=== PATIENT | female | born 1995 | race Caucasian/White ===

== ENCOUNTER 2017-10-08 02:34 | Emergency (ER) | payer SELFPAY ==
[~2017-10-08] VITALS: Ht 167.6 cm; Wt 55.7 kg
[2017-10-08 04:51] LABS: HEMATOCRIT 41.3 % (36.0-46.0); HEMOGLOBIN 14.2 G/DL (11.9-15.5); MCH 31.1 PG (29.0-34.0); MCHC 34.4 G/DL (30.0-36.0); MCV 90.6 FL (83-99); PLATELET COUNT 131 K/uL (156-360); RBC DIS.WIDTH-CV 12.5 % (11.8-14.6); RED BLOOD COUNT 4.56 M/uL (3.80-5.20); WHITE BLOOD COUNT 7.2 K/uL (4.1-10.2)
[2017-10-08 05:05] LABS: ALBUMIN 4.8 g/dL (3.2-4.8); CHLORIDE 109 mEq/L (99-109)
[2017-10-08 05:06] LABS: SODIUM 140 mEq/L (136-147)
[2017-10-08 05:08] LABS: GLUCOSE 135 mg/dL (70-99); TOTAL PROTEIN 8.3 g/dL (6.4-8.3)
[2017-10-08 05:10] LABS: TOTAL BILIRUBIN 0.7 mg/dL (0.0-1.0)
[2017-10-08 05:11] LABS: ALKALINE PHOSPHATASE 51 IU/L (3-129); CREATININE 0.8 mg/dL (0.6-1.3); GFR ESTIMATE (CALCULATED) > 59 mL/min/
[2017-10-08 05:12] LABS: UREA NITROGEN (BUN) 8 mg/dL (9-23)
[2017-10-08 05:13] LABS: AST (GOT) 16 IU/L (2-34)
[2017-10-08 05:14] LABS: ALT (GPT) 12 IU/L (3-49)
[2017-10-08 05:20] LABS: QUANTITATIVE HCG < 4.0 MIU/ML
[2017-10-08 06:17] LABS: APPEARANCE SL.HAZY ((CLEAR)); BILIRUBIN NEGATIVE; BLOOD LARGE; COLOR YELLOW ((YELLOW)); GLUCOSE (STRIP) NEGATIVE; KETONES 20; LEUKOCYTES NEGATIVE; NITRITE NEGATIVE; PROTEIN (STRIP) 30; SPECIFIC GRAVITY 1.025 (1.000-1.030); UROBILINOGEN 0.2 MG/DL (0.2-1.0)
[2017-10-08 06:21] LABS: BACTERIA 1+ /HPF; EPITHELIAL CELLS RARE /HPF; MUCUS 4+ /LPF; RED BLOOD CELLS 0-5 /HPF (0-5); UCUL ADDED? NO; WHITE BLOOD CELLS 0-5 /HPF (0-5)
[2017-10-08] MEDS ORDERED: REGLAN10 MG PO (06:29)
[2017-10-08] MEDS ORDERED: ZOFRAN ODT4 MG PO (06:29)
[2017-10-08] MEDS ORDERED: COMPAZINE25 M1 PR (06:29)
[2017-10-08 06:48] VITALS: BP 113/75
== END 2017-10-08 06:49 | disposition home or self-care (01) ==
LOC: EME 02:34
DX: K52.9 Noninfective gastroenteritis and colitis, unspecified (principal); Z79.3 Long term (current) use of hormonal contraceptives
CPT/HCPCS: 80053; 81003; 84702; 85027; 99281; 99284; J2405; J2765; J7040

== ENCOUNTER 2017-10-11 12:09 | Emergency (ER) | payer SELFPAY ==
[~2017-10-11] VITALS: Ht 157.5 cm; Wt 56.1 kg
[~2017-10-11 12:09] MED LIST: COMPAZINE25 M1 PR; REGLAN10 MG PO; ZOFRAN ODT4 MG PO
[2017-10-11 13:09] LABS: HEMATOCRIT 40.3 % (36.0-46.0); HEMOGLOBIN 13.7 G/DL (11.9-15.5); MCH 30.5 PG (29.0-34.0); MCV 89.8 FL (83-99); PLATELET COUNT 125 K/uL (156-360); RBC DIS.WIDTH-CV 12.4 % (11.8-14.6); RBC DIS.WIDTH-SD 40.5 % (39-53); RED BLOOD COUNT 4.49 M/uL (3.80-5.20); WHITE BLOOD COUNT 4.8 K/uL (4.1-10.2)
[2017-10-11 13:17] LABS: APPEARANCE CLEAR ((CLEAR)); BILIRUBIN NEGATIVE; BLOOD LARGE; COLOR YELLOW ((YELLOW)); GLUCOSE (STRIP) NEGATIVE; KETONES 80; LEUKOCYTES NEGATIVE; NITRITE NEGATIVE; PROTEIN (STRIP) NEGATIVE; SPECIFIC GRAVITY 1.017 (1.000-1.030); UROBILINOGEN 0.2 MG/DL (0.2-1.0)
[2017-10-11 13:19] LABS: ALBUMIN 4.4 g/dL (3.2-4.8); CHLORIDE 109 mEq/L (99-109); POTASSIUM 3.8 mEq/L (3.7-5.4); SODIUM 139 mEq/L (136-147)
[2017-10-11 13:22] LABS: BACTERIA RARE /HPF; CALCIUM OXALATE CRYSTALS 3+ /HPF; EPITHELIAL CELLS 1+ /HPF; MUCUS TRACE /LPF; RED BLOOD CELLS TNTC /HPF (0-5); UCUL ADDED? YES; WHITE BLOOD CELLS 15-20 /HPF (0-5)
[2017-10-11 13:22] LABS: GLUCOSE 101 mg/dL (70-99); TOTAL PROTEIN 7.6 g/dL (6.4-8.3)
[2017-10-11 13:23] LABS: TOTAL BILIRUBIN 0.6 mg/dL (0.0-1.0)
[2017-10-11 13:25] LABS: ALKALINE PHOSPHATASE 49 IU/L (3-129); CREATININE 0.7 mg/dL (0.6-1.3); GFR ESTIMATE (CALCULATED) > 59 mL/min/
[2017-10-11 13:26] LABS: UREA NITROGEN (BUN) 7 mg/dL (9-23)
[2017-10-11 13:27] LABS: AST (GOT) 16 IU/L (2-34)
[2017-10-11 13:28] LABS: ALT (GPT) 11 IU/L (3-49)
[2017-10-11 13:29] LABS: LIPASE 16 U/L (1.0-51.0)
[2017-10-11 13:36] LABS: QUANTITATIVE HCG < 4.0 MIU/ML
[2017-10-11] MEDS ORDERED: PHENERGAN25 MG PR (15:52)
[2017-10-11] MEDS ORDERED: BENTYL20 MG PO (15:52)
[2017-10-11] MEDS ORDERED: OMEPRAZOLE20 M2 PO (15:52)
[2017-10-11] MEDS ORDERED: MACROBID100 MG PO (15:52)
[2017-10-11] MEDS ORDERED: ZANTAC150 MG PO (15:52)
[2017-10-11 16:20] VITALS: BP 112/71
== END 2017-10-11 16:20 | disposition home or self-care (01) ==
LOC: EME 12:09
DX: N39.0 Urinary tract infection, site not specified (principal); B96.20 Unspecified Escherichia coli [E. coli] as the cause of diseases classified elsewhere; R11.2 Nausea with vomiting, unspecified; K21.9 Gastro-esophageal reflux disease without esophagitis; Z87.440 Personal history of urinary (tract) infections
CPT/HCPCS: 80053; 81003; 83690; 84702; 85027; 87077; 87086; 87186; 99281; 99284

== ENCOUNTER 2018-01-30 10:55 | Emergency (ER) | payer OTHER ==
[~2018-01-30] VITALS: Ht 162.6 cm; Wt 55.4 kg
[~2018-01-30 10:55] MED LIST changes: +BENTYL20 MG PO; +MACROBID100 MG PO; +OMEPRAZOLE20 M2 PO; +PHENERGAN25 MG PR; +ZANTAC150 MG PO
[2018-01-30 11:55] LABS: HEMATOCRIT 36.2 % (36.0-46.0); HEMOGLOBIN 12.4 G/DL (11.9-15.5); MCH 30.7 PG (29.0-34.0); MCHC 34.3 G/DL (30.0-36.0); MCV 89.6 FL (83-99); RBC DIS.WIDTH-CV 12.2 % (11.8-14.6); RBC DIS.WIDTH-SD 39.9 % (39-53); RED BLOOD COUNT 4.04 M/uL (3.80-5.20); WHITE BLOOD COUNT 5.6 K/uL (4.1-10.2)
[2018-01-30 12:05] LABS: ALBUMIN 4.5 g/dL (3.2-4.8); CHLORIDE 107 mEq/L (99-109); POTASSIUM 3.5 mEq/L (3.7-5.4); SODIUM 140 mEq/L (136-147)
[2018-01-30 12:07] LABS: GLUCOSE 95 mg/dL (70-99)
[2018-01-30 12:08] LABS: TOTAL PROTEIN 7.6 g/dL (6.4-8.3)
[2018-01-30 12:09] LABS: TOTAL BILIRUBIN 0.4 mg/dL (0.0-1.0)
[2018-01-30 12:11] LABS: ALKALINE PHOSPHATASE 41 IU/L (3-129); CREATININE 0.8 mg/dL (0.6-1.3); GFR ESTIMATE (CALCULATED) > 59 mL/min/
[2018-01-30 12:12] LABS: UREA NITROGEN (BUN) 6 mg/dL (9-23)
[2018-01-30 12:13] LABS: AST (GOT) 15 IU/L (2-34)
[2018-01-30 12:14] LABS: ALT (GPT) 9 IU/L (3-49)
[2018-01-30 12:51] LABS: HEMATOLOGY COMMENT 1 SN; PLAT.SUFFICIENCY DECREASED; PLATELET COUNT 131 K/uL (156-360)
[2018-01-30 13:38] LABS: APPEARANCE CLEAR ((CLEAR)); BILIRUBIN NEGATIVE; BLOOD NEGATIVE; COLOR AMBER ((YELLOW)); GLUCOSE (STRIP) NEGATIVE; KETONES NEGATIVE; LEUKOCYTES TRACE; NITRITE POSITIVE; PROTEIN (STRIP) NEGATIVE; SPECIFIC GRAVITY 1.004 (1.000-1.030)
[2018-01-30 13:41] LABS: BACTERIA NONE SEEN /HPF; EPITHELIAL CELLS 1+ /HPF; MUCUS TRACE /LPF; RED BLOOD CELLS 0-5 /HPF (0-5); UCUL ADDED? NO; WHITE BLOOD CELLS 0-5 /HPF (0-5)
[2018-01-30 14:29] LABS: SOURCE SWAB
[2018-01-30] MEDS ORDERED: DITROPAN5 MG PO (15:06)
[2018-01-30 15:23] VITALS: BP 119/88
[2018-01-30 16:59] LABS: CANDIDA DNA PROBE NEGATIVE; GARDNERELLA DNA PROBE NEGATIVE; TRICHOMONAS DNA PROBE NEGATIVE
== END 2018-01-30 15:24 | disposition home or self-care (01) ==
LOC: EME 10:55
PROVIDERS: Physician Assistant
DX: R30.0 Dysuria (principal)
CPT/HCPCS: 80053; 81003; 81025; 85027; 87086; 87210; 87480; 87491; 87510; 87591; 87660; 99281; 99284

== ENCOUNTER 2018-02-04 18:25 | Emergency (ER) | payer OTHER ==
[~2018-02-04] VITALS: Ht 165.1 cm; Wt 54.5 kg
[~2018-02-04 18:25] MED LIST changes: +DITROPAN5 MG PO
[2018-02-04 19:01] LABS: HEMOGLOBIN 12.5 G/DL (11.9-15.5); MCH 30.3 PG (29.0-34.0); MCHC 33.8 G/DL (30.0-36.0); MCV 89.8 FL (83-99); PLATELET COUNT 127 K/uL (156-360); RBC DIS.WIDTH-CV 12.2 % (11.8-14.6); RBC DIS.WIDTH-SD 40.4 % (39-53); RED BLOOD COUNT 4.12 M/uL (3.80-5.20); WHITE BLOOD COUNT 12.6 K/uL (4.1-10.2)
[2018-02-04 19:22] LABS: ALBUMIN 4.5 g/dL (3.2-4.8); CHLORIDE 104 mEq/L (99-109); POTASSIUM 3.4 mEq/L (3.7-5.4); SODIUM 136 mEq/L (136-147)
[2018-02-04 19:25] LABS: GLUCOSE 111 mg/dL (70-99); TOTAL PROTEIN 7.7 g/dL (6.4-8.3)
[2018-02-04 19:28] LABS: ALKALINE PHOSPHATASE 40 IU/L (3-129); CREATININE 0.8 mg/dL (0.6-1.3); GFR ESTIMATE (CALCULATED) > 59 mL/min/; TOTAL BILIRUBIN 0.7 mg/dL (0.0-1.0)
[2018-02-04 19:29] LABS: UREA NITROGEN (BUN) 8 mg/dL (9-23)
[2018-02-04 19:30] LABS: AST (GOT) 13 IU/L (2-34)
[2018-02-04 19:31] LABS: ALT (GPT) 9 IU/L (3-49)
[2018-02-04 19:38] LABS: QUANTITATIVE HCG < 4.0 MIU/ML
[2018-02-04 20:08] LABS: APPEARANCE SL.HAZY ((CLEAR)); BILIRUBIN NEGATIVE; BLOOD MODERATE; COLOR YELLOW ((YELLOW)); GLUCOSE (STRIP) NEGATIVE; KETONES NEGATIVE; LEUKOCYTES TRACE; NITRITE NEGATIVE; PROTEIN (STRIP) 30; SPECIFIC GRAVITY 1.027 (1.000-1.030); UROBILINOGEN 0.2 MG/DL (0.2-1.0)
[2018-02-04 20:26] LABS: BACTERIA RARE /HPF; EPITHELIAL CELLS 1+ /HPF; MUCUS 4+ /LPF; RED BLOOD CELLS 0-5 /HPF (0-5); UCUL ADDED? YES
[2018-02-04 21:08] VITALS: BP 118/60
== END 2018-02-04 21:09 | disposition home or self-care (01) ==
LOC: EME 18:25
DX: R10.31 Right lower quadrant pain (principal); J02.9 Acute pharyngitis, unspecified
CPT/HCPCS: 74177; 80053; 81003; 84702; 85027; 87086; 87651 90; 99281; 99284; J7030